=== PATIENT | female | born 1945 | race Asian ===

== ENCOUNTER 2020-09-08 10:11 | Observation (INO) | payer MEDICARE, OTHER ==
[2020-09-08 10:47] LABS: #Basophils 0.1 thou/uL (0.0-0.2); #Eosinphils 0.3 thou/uL (0.0-0.7); #Monocytes 0.4 thou/uL (0.11-0.59); %Basophils 0.8 % (0.0-1.0); %Eosinophils 4.1 % (0.0-10.0); %Lymphocytes 25.4 % (21.0-51.0); %Monocytes 5.1 % (0.0-10.0); %Neutrophils 64.5 % (42.0-75.0); Hemoglobin 15.1 g/dL (12.0-16.0); Mean Corpuscular HGB CONC 32.7 g/dL (32.0-36.0); Mean Corpuscular Hemoglobin 29.5 pg (27.0-31.0); Mean Corpuscular Volume 90.2 fL (78.0-98.0); Mean Platelet Volume 7.4 fL (7.4-10.4); Platelet Count 229 thou/uL (130-400); RBC Distribution Width 13.1 % (11.5-14.5); Red Blood Cell (RBC) Count 5.11 mill/uL (4.20-5.40); White Blood Cell (WBC) Count 7.8 thou/uL (4.8-10.8)
[2020-09-08 11:12] LABS: ALT (SGPT) 54 U/L (8-55); AST (SGOT) 46 U/L (5-34); Albumin 4.1 g/dL (3.4-4.8); Alkaline Phosphatase 87 U/L (40-110); Anion Gap 13 mmol/L (10-20); BUN (Urea Nitrogen) 25 mg/dL (9.8-20.1); Bilirubin, Total 0.7 mg/dL (0.2-1.2); Calc. Creatinine Clearance 0 mL/min (70-130); Calcium 8.9 mg/dL (7.8-10.44); Carbon Dioxide 23 mmol/L (23-31); Chloride 106 mmol/L (98-107); Globulin 3.5 g/dL (2.4-3.5); Glucose 134 mg/dL (83-110); Potassium 5.1 mmol/L (3.5-5.1); Protein, Total 7.6 g/dL (5.8-8.1); Sodium 137 mmol/L (136-145)
[2020-09-08] MEDS ORDERED: Metoprolol Tartrate 5 MG/5 ML VIAL ONE (12:26)
[2020-09-08] MEDS ORDERED: Dextrose 50% Abboject 50 ML SYRINGE SLOW IVP PRN (15:31)
[2020-09-08] MEDS ORDERED: Dextrose 5% in Water 1,000 ML IV PRN (15:31)
[2020-09-08 16:04] VITALS: BMI 39.6
[2020-09-08] MEDS ORDERED: HumaLOG 300 UNITS/3 ML VIAL SC PRN ×2 (16:04)
[2020-09-08 16:28] LABS: Troponin I Less than 0.010 ng/mL (< 0.028)
[2020-09-08 19:09] LABS: Troponin I Less than 0.010 ng/mL (< 0.028)
[2020-09-08] MEDS: Metoprolol Tartrate 25 MG TAB PO SCH (20:48)
[2020-09-08] MEDS ORDERED: Rosuvastatin 10 MG TAB PO SCH (21:00)
[2020-09-08] MEDS ORDERED: Rivaroxaban 10 MG TAB PO SCH (21:00)
[2020-09-09 04:48] LABS: #Basophils 0.1 thou/uL (0.0-0.2); #Eosinphils 0.3 thou/uL (0.0-0.7); #Lymphocytes 2.2 thou/uL (1.20-3.40); #Monocytes 0.5 thou/uL (0.11-0.59); #Neutrophils 2.9 thou/uL (1.40-6.50); %Basophils 0.9 % (0.0-1.0); %Eosinophils 4.4 % (0.0-10.0); %Lymphocytes 37.7 % (21.0-51.0); %Monocytes 7.8 % (0.0-10.0); %Neutrophils 49.2 % (42.0-75.0); Hemoglobin 14.2 g/dL (12.0-16.0); Mean Corpuscular HGB CONC 32.2 g/dL (32.0-36.0); Mean Corpuscular Hemoglobin 29.1 pg (27.0-31.0); Mean Corpuscular Volume 90.2 fL (78.0-98.0); Mean Platelet Volume 7.5 fL (7.4-10.4); Platelet Count 212 thou/uL (130-400); RBC Distribution Width 12.9 % (11.5-14.5); Red Blood Cell (RBC) Count 4.88 mill/uL (4.20-5.40); White Blood Cell (WBC) Count 5.9 thou/uL (4.8-10.8)
[2020-09-09 05:10] LABS: Anion Gap 11 mmol/L (10-20); BUN (Urea Nitrogen) 22 mg/dL (9.8-20.1); Calc. Creatinine Clearance 83 mL/min (70-130); Calcium 8.6 mg/dL (7.8-10.44); Carbon Dioxide 25 mmol/L (23-31); Chloride 106 mmol/L (98-107); Glucose 99 mg/dL (83-110); Magnesium 2.2 mg/dL (1.6-2.6); Potassium 4.1 mmol/L (3.5-5.1); Sodium 138 mmol/L (136-145)
[2020-09-09] MEDS ORDERED: Empagliflozin 10 MG TAB PO SCH (09:00)
[2020-09-09] MEDS ORDERED: Losartan 25 MG TAB PO SCH (09:00)
[2020-09-09] MEDS: Metoprolol Tartrate 25 MG TAB PO SCH (10:25)
[2020-09-09 12:26] VITALS: TEMP 97.5
[2020-09-09 17:08] VITALS: BP 119/68
== END 2020-09-09 16:35 | disposition home or self-care (01) ==
LOC: ERS 10:11 → 2SW 14:22
PROVIDERS: ADMIT Internal Medicine; ATTEND Internal Medicine
DX: I48.91 Unspecified atrial fibrillation (principal); I48.92 Unspecified atrial flutter; I12.9 Hypertensive chronic kidney disease with stage 1 through stage 4 chronic kidney disease, or unspecified chronic kidney disease; E11.22 Type 2 diabetes mellitus with diabetic chronic kidney disease; N18.30 Chronic kidney disease, stage 3 unspecified; E78.00 Pure hypercholesterolemia, unspecified; E78.5 Hyperlipidemia, unspecified; E66.9 Obesity, unspecified; Z68.39 Body mass index [BMI] 39.0-39.9, adult; Z79.01 Long term (current) use of anticoagulants; Z79.84 Long term (current) use of oral hypoglycemic drugs; Z79.899 Other long term (current) drug therapy; Z98.890 Other specified postprocedural states
CPT/HCPCS: 71045; 80048; 80053; 82962 ×2; 83735; 83880; 84484 ×2; 85025 ×2; 85379; 93005; 96374; 99285; G0378 ×3; 36415; 36416

== ENCOUNTER 2020-09-28 08:26 | Outpatient (CLI) | payer MEDICARE ==
[2020-09-28 13:02] LABS: Hemoglobin 14.5 g/dL (12.0-15.5); Mean Corpuscular HGB CONC 30.3 g/dL (32.0-36.0); Mean Corpuscular Hemoglobin 27.4 pg (27.0-33.0); Mean Corpuscular Volume 90.4 fl (81.6-98.3); Mean Platelet Volume 10.5 fl (7.4-10.4); Platelet Count 220 10x3/uL (150-450); RBC Distribution Width 13.5 % (11.5-14.5); Red Blood Cell (RBC) Count 5.29 10x6/uL (3.90-5.03)
[2020-09-28 13:04] LABS: Anion Gap 16 mmol/L (10-20); BUN (Urea Nitrogen) 30 mg/dL (9.8-20.1); Calc. Creatinine Clearance 0 mL/min (70-130); Carbon Dioxide 24 mmol/L (23-31); Chloride 107 mmol/L (98-107); Glucose 98 mg/dL (83-110); Potassium 4.9 mmol/L (3.5-5.1); Sodium 142 mmol/L (136-145)
[2020-09-28 13:07] LABS: PTT 28.5 sec (22.0-33.0); Prothrombin Time 11.4 sec (9.5-12.1)
== END 2020-09-28 08:27 | disposition home or self-care (01) ==
LOC: LABBT 08:26
PROVIDERS: ATTEND Internal Medicine Cardiovascular Disease
DX: Z01.818 Encounter for other preprocedural examination (principal); I48.91 Unspecified atrial fibrillation
CPT/HCPCS: 80048; 85027; 85610; 85730; 93005; 93010

== ENCOUNTER 2020-10-03 06:11 | Observation (INO) | payer MEDICARE ==
[2020-09-30 09:39] VITALS: BMI 38.9
[2020-10-03] MEDS ORDERED: Fentanyl 100 MCG/2 ML VIAL ONE (06:46)
[2020-10-03] MEDS ORDERED: Midazolam HCl 2 mg/2 ml Vial ONE (06:46)
[2020-10-03] MEDS ORDERED: Heparin 10,000 UNITS/ 10 ML VIAL ONE ×3 (06:46→09:51)
[2020-10-03] MEDS ORDERED: Heparin 25,000 units/D5W 500 ML ONE (06:47)
[2020-10-03] MEDS ORDERED: Isoproterenol 0.2 MG/1 ML AMP ONE (06:47)
[2020-10-03] MEDS ORDERED: Phenylephrine 10 MG/ML VIAL ONE (06:56)
[2020-10-03] MEDS ORDERED: Ondansetron PF 4 MG/2 ML Vial ONE (08:00)
[2020-10-03] MEDS ORDERED: Rocuronium Bromide 10 MG/ML (10ML VIAL) ONE (08:00)
[2020-10-03] MEDS ORDERED: Esmolol 100 MG/10 ML VIAL ONE (08:00)
[2020-10-03] MEDS ORDERED: PROPOFOL 200 MG/20 ML VIAL ONE (08:00)
[2020-10-03] MEDS ORDERED: Lidocaine 1% PF 5 ML VIAL ONE (08:00)
[2020-10-03] MEDS ORDERED: Metoprolol Tartrate 5 MG/5 ML VIAL ONE (08:00)
[2020-10-03] MEDS ORDERED: PHENYLEPHRINE-NS 100 MCG/ML 10 ML SYRINGE ONE ×2 (08:00)
[2020-10-03] MEDS ORDERED: Protamine Sulfate 50 MG/5 ML VIAL ONE (10:11)
[2020-10-03] MEDS ORDERED: SUGAMMADEX SODIUM 200 MG/2 ML VIAL ONE (10:38)
[2020-10-03] MEDS ORDERED: Ketorolac Tromethamine 30 MG/ML VIAL IVP PRN (11:02)
[2020-10-03] MEDS ORDERED: Acetaminophen/Codeine 30-300mg Tablet PO PRN ×2 (11:15)
[2020-10-03] MEDS: Sucralfate 1 GM TAB PO SCH ×3 (13:21→23:32)
[2020-10-03] MEDS ORDERED: Rosuvastatin 10 MG TAB PO SCH (21:00)
[2020-10-03] MEDS ORDERED: Rivaroxaban 10 MG TAB PO SCH (21:00)
[2020-10-04] MEDS: Sucralfate 1 GM TAB PO SCH ×2 (06:19→12:09)
[2020-10-04 08:33] VITALS: BP 127/76; TEMP 98.3
[2020-10-04] MEDS ORDERED: Metoprolol Tartrate 50 MG TAB PO SCH (09:00)
[2020-10-04] MEDS ORDERED: Losartan 25 MG TAB PO SCH (09:00)
== END 2020-10-04 12:15 | disposition home or self-care (01) ==
LOC: CCL 06:11 → 2SW 12:54
PROVIDERS: ADMIT Internal Medicine Cardiovascular Disease; ATTEND Internal Medicine Cardiovascular Disease
PROC: 4A023FZ Measurement of Cardiac Rhythm, Percutaneous Approach (ICD-10-PCS; principal; 2020-10-03)
PROC: 4A0234Z Measurement of Cardiac Electrical Activity, Percutaneous Approach (ICD-10-PCS; 2020-10-03)
PROC: 02583ZZ Destruction of Conduction Mechanism, Percutaneous Approach (ICD-10-PCS; 2020-10-03)
PROC: 02K83ZZ Map Conduction Mechanism, Percutaneous Approach (ICD-10-PCS; 2020-10-03)
DX: I48.4 Atypical atrial flutter (principal); I48.91 Unspecified atrial fibrillation; Z79.01 Long term (current) use of anticoagulants; Z79.899 Other long term (current) drug therapy
CPT/HCPCS: 76942; 85347 ×2; 92960; 93005 ×2; 93613; 93623; 93655; 93656; 93657; 93662; C1732 ×3; C1759; G0378 ×2; 93010; J1644; J2250; J2370; J2405; J2704; J2720; J3010

== ENCOUNTER 2022-01-26 18:26 | Inpatient (IN) | payer MEDICARE ==
[2022-01-26 20:09] LABS: #Basophils 0.1 thou/uL (0.0-0.2); #Eosinphils 0.5 thou/uL (0.0-0.7); #Lymphocytes 3.1 thou/uL (1.20-3.40); #Monocytes 0.6 thou/uL (0.11-0.59); #Neutrophils 4.3 thou/uL (1.40-6.50); %Basophils 1.1 % (0.0-1.0); %Eosinophils 5.6 % (0.0-10.0); %Lymphocytes 36.1 % (21.0-51.0); %Monocytes 6.8 % (0.0-10.0); %Neutrophils 50.5 % (42.0-75.0); Hemoglobin 13.9 g/dL (12.0-16.0); Mean Corpuscular Hemoglobin 28.5 pg (27.0-31.0); Mean Corpuscular Volume 91.9 fL (78.0-98.0); Mean Platelet Volume 8.4 fL (7.4-10.4); Platelet Count 212 thou/uL (130-400); RBC Distribution Width 13.2 % (11.5-14.5); White Blood Cell (WBC) Count 8.6 thou/uL (4.8-10.8)
[2022-01-26 20:47] LABS: ALT (SGPT) 30 U/L (8-55); AST (SGOT) 25 U/L (5-34); Alkaline Phosphatase 82 U/L (40-110); Anion Gap 12 mmol/L (10-20); BUN (Urea Nitrogen) 34 mg/dL (9.8-20.1); Bilirubin, Total 0.4 mg/dL (0.2-1.2); Calc. Creatinine Clearance 0 mL/min (70-130); Calcium 9.3 mg/dL (7.8-10.44); Carbon Dioxide 25 mmol/L (23-31); Chloride 108 mmol/L (98-107); Estimated GFR 47; Globulin 3.7 g/dL (2.4-3.5); Glucose 120 mg/dL (83-110); Protein, Total 7.7 g/dL (5.8-8.1); Sodium 141 mmol/L (136-145)
[2022-01-26 23:08] LABS: SARS-CoV-2 NAA Rapid Test Not Detected (NotDetected)
[2022-01-27 00:43] LABS: Troponin I Less than 0.010 ng/mL (< 0.028)
[2022-01-27] MEDS ORDERED: Ondansetron PF 4 MG/2 ML Vial IVP PRN (02:27)
[2022-01-27] MEDS ORDERED: Acetaminophen 650 MG Suppository PR PRN (02:27)
[2022-01-27] MEDS ORDERED: Ondansetron ODT 4 MG TAB PO PRN (02:27)
[2022-01-27 03:19] LABS: #Basophils 0.1 thou/uL (0.0-0.2); #Eosinphils 0.4 thou/uL (0.0-0.7); #Lymphocytes 3.3 thou/uL (1.20-3.40); #Monocytes 0.5 thou/uL (0.11-0.59); %Basophils 1.2 % (0.0-1.0); %Lymphocytes 39.5 % (21.0-51.0); %Monocytes 6.3 % (0.0-10.0); Hemoglobin 13.2 g/dL (12.0-16.0); Mean Corpuscular HGB CONC 31.4 g/dL (32.0-36.0); Mean Corpuscular Volume 92.4 fL (78.0-98.0); Mean Platelet Volume 8.5 fL (7.4-10.4); Platelet Count 196 thou/uL (130-400); Red Blood Cell (RBC) Count 4.54 mill/uL (4.20-5.40); White Blood Cell (WBC) Count 8.4 thou/uL (4.8-10.8)
[2022-01-27 03:35] LABS: Anion Gap 12 mmol/L (10-20); BUN (Urea Nitrogen) 37 mg/dL (9.8-20.1); Calc. Creatinine Clearance 90 mL/min (70-130); Carbon Dioxide 25 mmol/L (23-31); Chloride 108 mmol/L (98-107); Sodium 141 mmol/L (136-145)
[2022-01-27 03:36] LABS: Calcium 8.8 mg/dL (7.8-10.44); Estimated GFR 54; Glucose 107 mg/dL (83-110)
[2022-01-27 03:41] LABS: Troponin I Less than 0.010 ng/mL (< 0.028)
[2022-01-27 04:09] VITALS: BMI 40.8
[2022-01-27] MEDS ORDERED: Sodium Chloride 0.9% 1,000 ML IV SCH (04:45)
[2022-01-27] MEDS ORDERED: Enoxaparin Sodium 40 MG/0.4 ML SYRINGE SC SCH (09:00)
[2022-01-27] MEDS: Metoprolol Tartrate 50 MG TAB PO SCH ×2 (09:36→20:54)
[2022-01-27] MEDS: Rosuvastatin 5 MG TAB PO SCH (20:54)
[2022-01-27] MEDS: Amiodarone 200 MG TAB PO SCH (20:54)
[2022-01-27] MEDS ORDERED: Rivaroxaban 10 MG TAB PO SCH (21:00)
[2022-01-28] MEDS: Metoprolol Tartrate 50 MG TAB PO SCH ×2 (10:02→20:39)
[2022-01-28] MEDS: Amiodarone 200 MG TAB PO SCH ×3 (10:02→20:39)
[2022-01-28] MEDS: Rivaroxaban 10 MG TAB PO SCH (20:39)
[2022-01-28] MEDS: Rosuvastatin 5 MG TAB PO SCH (20:40)
[2022-01-29] MEDS: Amiodarone 200 MG TAB PO SCH ×3 (09:23→20:09)
[2022-01-29] MEDS: Metoprolol Tartrate 50 MG TAB PO SCH ×2 (09:23→20:10)
[2022-01-29] MEDS: Rosuvastatin 5 MG TAB PO SCH (20:09)
[2022-01-29] MEDS: Rivaroxaban 10 MG TAB PO SCH (20:10)
[2022-01-30] MEDS: Metoprolol Tartrate 50 MG TAB PO SCH ×2 (08:07→21:25)
[2022-01-30] MEDS: Amiodarone 200 MG TAB PO SCH (08:07)
[2022-01-30] MEDS ORDERED: PROPOFOL 200 MG/20 ML VIAL ONE (12:05)
[2022-01-30] MEDS: Rivaroxaban 10 MG TAB PO SCH (21:24)
[2022-01-30] MEDS: Rosuvastatin 5 MG TAB PO SCH (21:25)
[2022-01-31] MEDS: Amiodarone 200 MG TAB PO SCH ×2 (08:38→08:48)
[2022-01-31] MEDS: Metoprolol Tartrate 50 MG TAB PO SCH (08:48)
[2022-01-31] MEDS: Amlodipine 5 MG TAB PO SCH (16:59)
[2022-01-31] MEDS: Rosuvastatin 5 MG TAB PO SCH (20:41)
[2022-01-31] MEDS: Rivaroxaban 10 MG TAB PO SCH (20:41)
[2022-02-01] MEDS: Acetaminophen 325 MG TAB PO PRN ×2 (00:35→09:12)
[2022-02-01] MEDS ORDERED: Metoprolol Tartrate 25 MG TAB PO SCH (09:00)
[2022-02-01] MEDS: Amiodarone 200 MG TAB PO SCH (09:15)
[2022-02-01] MEDS: Amlodipine 5 MG TAB PO SCH (16:59)
[2022-02-01] MEDS: Rosuvastatin 5 MG TAB PO SCH (21:08)
[2022-02-01] MEDS: Metoprolol Tartrate 25 MG TAB PO SCH (21:08)
[2022-02-01] MEDS: Rivaroxaban 10 MG TAB PO SCH (21:09)
[2022-02-01 23:51] VITALS: BP 152/74; TEMP 97.9
[2022-02-02] MEDS: Acetaminophen 325 MG TAB PO PRN (06:59)
[2022-02-02] MEDS: Metoprolol Tartrate 25 MG TAB PO SCH (09:09)
== END 2022-02-02 12:00 | disposition home or self-care (01) | DRG 309 ==
LOC: ERS 18:26 → ERHOLD 21:36 → 2NO 01-27 03:13 → OBSVTOIN 01-27 14:32
PROVIDERS: ADMIT Student in an Organized Health Care Education/Training Program; ATTEND Internal Medicine
PROC: 5A2204Z Restoration of Cardiac Rhythm, Single (ICD-10-PCS; principal; 2022-01-30)
DX: I48.92 Unspecified atrial flutter (principal); N17.9 Acute kidney failure, unspecified; Z68.41 Body mass index [BMI] 40.0-44.9, adult; I95.2 Hypotension due to drugs; I48.91 Unspecified atrial fibrillation; Z20.822 Contact with and (suspected) exposure to COVID-19; E78.00 Pure hypercholesterolemia, unspecified; N18.9 Chronic kidney disease, unspecified; I12.9 Hypertensive chronic kidney disease with stage 1 through stage 4 chronic kidney disease, or unspecified chronic kidney disease; E11.22 Type 2 diabetes mellitus with diabetic chronic kidney disease; E66.9 Obesity, unspecified; R00.1 Bradycardia, unspecified; Z79.899 Other long term (current) drug therapy; Z79.01 Long term (current) use of anticoagulants
CPT/HCPCS: 36415; 71045; 80048; 80053; 83880; 84484; 85025; 85379; 92960; 93005; 93306; J2704; J7050; U0002

== ENCOUNTER 2022-03-12 11:11 | Outpatient (CLI) | payer MEDICARE ==
[2022-03-12 13:17] LABS: Hemoglobin 13.9 g/dL (12.0-15.5); Mean Corpuscular HGB CONC 32.6 g/dL (32.0-36.0); Mean Corpuscular Hemoglobin 28.5 pg (27.0-33.0); Mean Corpuscular Volume 87.3 fl (81.6-98.3); Mean Platelet Volume 9.8 fl (7.4-10.4); Platelet Count 230 10x3/uL (150-450); RBC Distribution Width 13.5 % (11.5-14.5); Red Blood Cell (RBC) Count 4.88 10x6/uL (3.90-5.03); White Blood Cell (WBC) Count 5.5 10x3/uL (3.5-10.5)
[2022-03-12 13:31] LABS: INR-International Normal Ratio 1.3; PTT 37.9 sec (22.0-33.0)
[2022-03-12 13:40] LABS: ALT (SGPT) 16 U/L (8-55); AST (SGOT) 18 U/L (5-34); Albumin 4.4 g/dL (3.4-4.8); Alkaline Phosphatase 77 U/L (40-110); Anion Gap 14 mmol/L (10-20); BUN (Urea Nitrogen) 26 mg/dL (9.8-20.1); Bilirubin, Direct 0.2 mg/dL (0.1-0.3); Bilirubin, Total 0.6 mg/dL (0.2-1.2); Calc. Creatinine Clearance 0 mL/min (70-130); Calcium 9.1 mg/dL (7.8-10.44); Carbon Dioxide 24 mmol/L (23-31); Chloride 108 mmol/L (98-107); Estimated GFR 62; Glucose 94 mg/dL (83-110); Potassium 4.1 mmol/L (3.5-5.1); Protein, Total 7.6 g/dL (5.8-8.1); Sodium 142 mmol/L (136-145)
== END 2022-03-12 11:12 | disposition home or self-care (01) ==
LOC: LABBT 11:11
PROVIDERS: ATTEND Internal Medicine Cardiovascular Disease
DX: Z01.818 Encounter for other preprocedural examination (principal); I48.0 Paroxysmal atrial fibrillation
CPT/HCPCS: 71046; 80048; 80076; 85027; 85610; 85730; 93005; 93010

== ENCOUNTER 2022-03-14 07:12 | Day surgery (SDC) | payer MEDICARE ==
[2022-03-13 11:17] VITALS: BMI 40.4
[2022-03-14] MEDS ORDERED: Isoproterenol 0.2 MG/1 ML AMP ONE (08:33)
[2022-03-14] MEDS ORDERED: Heparin 10,000 UNITS/ 10 ML VIAL ONE (08:33)
[2022-03-14] MEDS ORDERED: Heparin 25,000 units/D5W 500 ML ONE (08:33)
[2022-03-14] MEDS ORDERED: Protamine Sulfate 50 MG/5 ML VIAL ONE (08:33)
[2022-03-14] MEDS ORDERED: Furosemide 40 MG TAB PO PRN (08:43)
[2022-03-14] MEDS ORDERED: Potassium Chloride 20 MEQ TAB PO PRN (08:43)
[2022-03-14] MEDS ORDERED: NEOSTIGMINE 3 MG/3 ML SYR 3 MG/3 ML SYRINGE ONE (09:41)
[2022-03-14] MEDS ORDERED: Succinylcholine 200 MG/10 ml SYRINGE FS ONE (09:41)
[2022-03-14] MEDS ORDERED: Rocuronium Bromide 10 MG/ML (10ML VIAL) ONE (09:41)
[2022-03-14] MEDS ORDERED: Phenylephrine 10 MG/ML VIAL ONE (09:41)
[2022-03-14] MEDS ORDERED: Ondansetron PF 4 MG/2 ML Vial ONE (09:41)
[2022-03-14] MEDS ORDERED: PROPOFOL 200 MG/20 ML VIAL ONE (09:41)
[2022-03-14] MEDS ORDERED: Dexamethasone 20 MG/5 ML VIAL ONE (09:41)
[2022-03-14] MEDS ORDERED: Glycopyrrolate 0.2 MG/ML 5 ML SYRINGE ONE (09:41)
[2022-03-14] MEDS ORDERED: Sucralfate 1 GM TAB PO SCH (11:30)
[2022-03-14] MEDS ORDERED: FENTANYL 50 MCG/ML 1 ML VIAL ONE (13:49)
== END 2022-03-14 18:44 | disposition home or self-care (01) ==
LOC: SDC 07:12
PROVIDERS: ATTEND Internal Medicine Cardiovascular Disease
PROC: 02583ZZ Destruction of Conduction Mechanism, Percutaneous Approach (ICD-10-PCS; principal; 2022-03-14)
PROC: 02K83ZZ Map Conduction Mechanism, Percutaneous Approach (ICD-10-PCS; 2022-03-14)
PROC: 4A023FZ Measurement of Cardiac Rhythm, Percutaneous Approach (ICD-10-PCS; 2022-03-14)
PROC: 4A0234Z Measurement of Cardiac Electrical Activity, Percutaneous Approach (ICD-10-PCS; 2022-03-14)
DX: I48.19 Other persistent atrial fibrillation (principal); I48.4 Atypical atrial flutter; I12.9 Hypertensive chronic kidney disease with stage 1 through stage 4 chronic kidney disease, or unspecified chronic kidney disease; E11.22 Type 2 diabetes mellitus with diabetic chronic kidney disease; N18.9 Chronic kidney disease, unspecified; E78.5 Hyperlipidemia, unspecified; Z79.01 Long term (current) use of anticoagulants; Z79.84 Long term (current) use of oral hypoglycemic drugs; Z79.899 Other long term (current) drug therapy
CPT/HCPCS: 85347 ×2; 93005; 93623; 93655; 93656; J3010; C1732; C1760; C1769; C1884; C1894; J1100; J1644; J2370; J2405; J2704; J2720

== ENCOUNTER 2022-04-22 15:29 | Emergency (ER) | payer MEDICARE ==
[2022-04-22 16:53] LABS: #Eosinphils 0.4 thou/uL (0.0-0.7); #Lymphocytes 1.2 thou/uL (1.20-3.40); #Monocytes 0.7 thou/uL (0.11-0.59); #Neutrophils 8.8 thou/uL (1.40-6.50); %Basophils 0.4 % (0.0-1.0); %Eosinophils 3.5 % (0.0-10.0); %Lymphocytes 11.1 % (21.0-51.0); %Monocytes 6.5 % (0.0-10.0); %Neutrophils 78.6 % (42.0-75.0); Hemoglobin 14.8 g/dL (12.0-16.0); Mean Corpuscular Hemoglobin 30.3 pg (27.0-31.0); Mean Platelet Volume 7.7 fL (7.4-10.4); Platelet Count 191 10x3/uL (130-400); RBC Distribution Width 12.6 % (11.5-14.5); Red Blood Cell (RBC) Count 4.88 mill/uL (4.20-5.40); White Blood Cell (WBC) Count 11.2 10x3/uL (4.8-10.8)
[2022-04-22 17:11] LABS: ALT (SGPT) 13 U/L (8-55); AST (SGOT) 19 U/L (5-34); Albumin 4.2 g/dL (3.4-4.8); Alkaline Phosphatase 87 U/L (40-110); Anion Gap 13 mmol/L (10-20); BUN (Urea Nitrogen) 17 mg/dL (9.8-20.1); Calc. Creatinine Clearance 0 mL/min (70-130); Calcium 8.8 mg/dL (7.8-10.44); Carbon Dioxide 22 mmol/L (23-31); Chloride 106 mmol/L (98-107); Estimated GFR 56; Globulin 3.1 g/dL (2.4-3.5); Glucose 120 mg/dL (83-110); Potassium 4.1 mmol/L (3.5-5.1); Protein, Total 7.3 g/dL (5.8-8.1); Sodium 137 mmol/L (136-145)
[2022-04-22] MEDS ORDERED: Metoprolol Tartrate 5 MG/5 ML VIAL ONE (17:55)
== END 2022-04-22 17:38 | disposition home or self-care (01) ==
LOC: ERS 15:29
DX: I48.91 Unspecified atrial fibrillation (principal); D72.829 Elevated white blood cell count, unspecified; E78.00 Pure hypercholesterolemia, unspecified; Z79.899 Other long term (current) drug therapy
CPT/HCPCS: 36415; 71045; 80053; 83880; 84484; 85025; 93005; 94760; 96374

== ENCOUNTER 2022-05-03 10:33 | Outpatient (CLI) | payer MEDICARE ==
[2022-05-03 13:57] LABS: Hemoglobin 15.1 g/dL (12.0-15.5); Mean Corpuscular HGB CONC 32.2 g/dL (32.0-36.0); Mean Corpuscular Hemoglobin 29.1 pg (27.0-33.0); Mean Corpuscular Volume 90.4 fl (81.6-98.3); Mean Platelet Volume 9.8 fl (7.4-10.4); Platelet Count 284 10x3/uL (150-450); RBC Distribution Width 13.3 % (11.5-14.5); Red Blood Cell (RBC) Count 5.19 10x6/uL (3.90-5.03); White Blood Cell (WBC) Count 7.3 10x3/uL (3.5-10.5)
[2022-05-03 14:08] LABS: Anion Gap 15 mmol/L (10-20); BUN (Urea Nitrogen) 25 mg/dL (9.8-20.1); Calc. Creatinine Clearance 0 mL/min (70-130); Calcium 9.3 mg/dL (7.8-10.44); Carbon Dioxide 25 mmol/L (23-31); Chloride 105 mmol/L (98-107); Estimated GFR 51; Glucose 86 mg/dL (83-110); Potassium 4.7 mmol/L (3.5-5.1); Sodium 140 mmol/L (136-145)
[2022-05-03 14:14] LABS: INR-International Normal Ratio 1.1; Prothrombin Time 11.4 sec (9.5-12.1)
== END 2022-05-03 10:34 | disposition home or self-care (01) ==
LOC: LABBT 10:33
PROVIDERS: ATTEND Internal Medicine Cardiovascular Disease
DX: Z01.812 Encounter for preprocedural laboratory examination (principal); I48.0 Paroxysmal atrial fibrillation
CPT/HCPCS: 80048; 85027; 85610; 85730

== ENCOUNTER 2022-05-04 07:37 | Day surgery (SDC) | payer MEDICARE ==
[2022-05-03 08:47] VITALS: BMI 39.3
[2022-05-04] MEDS ORDERED: PROPOFOL 20 ML ONE (09:22)
== END 2022-05-04 10:45 | disposition home or self-care (01) ==
LOC: SDC 07:37
PROVIDERS: ATTEND Internal Medicine Cardiovascular Disease
PROC: 5A2204Z Restoration of Cardiac Rhythm, Single (ICD-10-PCS; principal; 2022-05-04)
DX: I48.19 Other persistent atrial fibrillation (principal); I48.4 Atypical atrial flutter; I45.10 Unspecified right bundle-branch block; I13.10 Hypertensive heart and chronic kidney disease without heart failure, with stage 1 through stage 4 chronic kidney disease, or unspecified chronic kidney disease; E11.22 Type 2 diabetes mellitus with diabetic chronic kidney disease; N18.9 Chronic kidney disease, unspecified; E78.5 Hyperlipidemia, unspecified; Z79.01 Long term (current) use of anticoagulants; Z79.84 Long term (current) use of oral hypoglycemic drugs; Z79.899 Other long term (current) drug therapy; Z98.890 Other specified postprocedural states
CPT/HCPCS: 92960; 93005; 93010; J2704